=== PATIENT | female | born 1995 | race Caucasian/White ===

== ENCOUNTER 2023-05-13 16:51 | Inpatient (IN) ==
[2023-05-13] MEDS ORDERED: ONDANSETRON INJ 2 MG/ML 2 ML VIAL IV STA (18:03)
[2023-05-13] MEDS ORDERED: KETOROLAC TROMETHAMINE 15 MG/ML VIAL IV STA (18:03)
[2023-05-13] MEDS ORDERED: SODIUM CHLORIDE 0.9% 1000ML 1,000 ML IV ONE (18:03)
--- NOTE | 2023-05-13 18:08 | Emergency Department Note ---
ED Provider Note History of Present Illness Chief Complaint: Flank Pain Stated Complaint: LOWER BACK PAIN,ABDOMINAL PAIN Time Seen by Provider: 05/13/23 17:52 28-year-old female who presents to the emergency department for evaluation of l eft flank pain. The patient reports that she woke up this morning with the discomfort. She has noticed increased urge to urinate. She has had nausea and vomiting x3 today. The reports that he was massaging her back this morning and that seemed to worsen the pain, as was the movement. She was seen at [facility] with a reported normal urine dip. With ongoing symptoms, the patient elected to come to the emergency department for further evaluation. The patient denies history of kidney stones or UTIs. Last menstruation was 1 week ago, and the patient denies . The patient rates her discomfort an 8 out of 10. Home Medications Medication Instructions Recorded Confirmed Type nitrofurantoin 100 mg PO BID 05/13/23 05/13/23 History monohydrate/macrocrystals 100 mg capsule Allergies Allergy/AdvReac Type Severity Reaction Status Date / Time No Known Allergies Allergy Verified 02/07/23 15:14 Past Med/Surg History Medical History Anal skin tag Anxiety disorder History of COVID-19 11/2021- bad cold symptoms, no hospitalziation, no current issues Hx of bronchitis years ago Migraine w/o aura Surgical History S/P wisdom tooth extraction Family History Father Hypertension Myocardial infarction Brother Hypertension Grandmother (Paternal) Hypertension Breast cancer Myocardial infarction Aunt Hypertension Breast cancer Uncle Hypertension Family/Other Hypertension Mother Clotting disorder Denies family history of Ovarian cancer Prostate cancer Colorectal cancer Uterine cancer Social History Smoking Status: Never smoker Second Hand Exposure: No; Do You Dip or Chew Tobacco: No; Hx Alcohol Use: Yes Alcohol type: hard liquor Alcohol Intake Frequency: Monthly or Less Hx Substance Use: No Preferred Language: Pashto Communication Ability: Effective Visual Impairment: No Limitations Hearing Ability: Normal Business Development Coordinator Required: No Beliefs That Will Affect Care: None marital status: Current Living Situation: Significant Other current occupational status: employed Feels Safe at Home: Yes Childhood Exposure to Second-Hand Smoke: Yes Diet: regular Dental Care, Regularly: Yes Physical Activity Frequency: 3-4 Times per Week Seatbelt Use: always Sunscreen Use: Yes Assistive Devices: Contacts and Glasses Physical Exam Vital Signs Vital Signs - 24 hr 05/13/23 16:59 05/13/23 18:09 05/13/23 17:51 Temperature 36.3 C L Temperature Source Temporal Artery Scan Pulse Rate 90 80 Pulse Rate from SpO2 Sensor Respiratory Rate 20 Respiratory Effort / Characteristics Non-Labored Respiratory Depth Normal Blood Pressure 124/83 Blood Pressure Mean 96 Pulse Oximetry 99 Oxygen Delivery Method Room Air Sepsis Recent Fever Within 48 Hours No Sepsis New/Unexplained Change in Mental Status N/A Sepsis Action Taken by Nursing No Action Required 05/13/23 20:30 05/13/23 20:30 05/13/23 22:09 Temperature Temperature Source Pulse Rate 85 86 Pulse Rate from SpO2 Sensor 86 Respiratory Rate 14 Respiratory Effort / Characteristics Respiratory Depth Blood Pressure 115/82 Blood Pressure Mean 93 Pulse Oximetry 96 Oxygen Delivery Method Room Air Sepsis Recent Fever Within 48 Hours Sepsis New/Unexplained Change in Mental Status Sepsis Action Taken by Nursing CONSTITUTIONAL: Healthy and well nourished. Patient appears in mild to moderate discomfort. HEENT: No scleral icterus or conjunctival injection. NECK: Full active range of motion without discomfort. RESPIRATORY: Clear to auscultation bilaterally with no wheezing, crackles, rhonchi or stridor. CARDIOVASCULAR: Regular rate and rhythm with no murmurs, rubs or gallops. GASTROINTESTINAL: Bowel sounds present in all quadrants. Patient does not have any significant abdominal tenderness to palpation. MUSCULOSKELETAL: Examination shows tenderness to palpation through the left lumbar paraspinous muscle. INTEGUMENTARY: No rash or other significant dermatologic conditions noted. HEMATOLOGIC: No ecchymosis or petechiae. PSYCHIATRIC: Positive affect. NEUROLOGIC: No focal neurologic deficits noted. Course Course Patient history and physical exam were performed. Nurses notes were reviewed. Vital signs were reviewed and were normal. IV access was established, and labs were drawn. The patient was hydrated with a liter normal saline, and administered IV Toradol and Zofran. Review of labs shows a marked leukocytosis without evidence for acute kidney injury, electrolyte abnormality or elevated lipase. Urinalysis also does not show evidence for infection. CT with IV cont rast of the abdomen and pelvis shows a moderate hydroureteronephrosis with a 4 mm left UVJ stone. I did order IV Rocephin because of her leukocytosis, and in case she may also have an early pyelonephritis. Findings were discussed with the patient, as well as urology service (Dr. Larios), who recommended admission for IV antibiotics, remaining n.p.o. after midnight, with possible stent placement tomorrow if symptoms persist. I did place an order for Flomax as well. The patient was in agreement with this plan. Harsha Obando PA-C street contractor with the urology service, also came to speak with the patient. The case was then further discussed with the Senior Control Systems Engineer, as well as Dr. Hou, [facility] hospitalist. See hospitalist and urologist dictations for further treatment and final disposition. It is noted that the patient did have significant relief of her pain and nausea with IV Toradol and Zofran, refusing any additional analgesics or antiemetics prior to transfer of care to the hospitalist service. Administered Medications Discontinued Medications Sodium Chloride (Nss 1000ml) 1,000 mls @ 999 mls/hr IV .Q1H1M ONE Stop: 05/13/23 19:03 Last Infusion: 05/13/23 19:48 Dose: 0 mls/hr Documented By: Admin: 05/13/23 18:33 Dose: 999 mls/hr Documented By: JOHN Ceftriaxone Sodium (Rocephin) 2,000 mg in 70 mls @ 140 mls/hr IV NOW STA Stop: 05/13/23 20:04 Last Infusion: 05/13/23 20:14 Dose: 0 mls/hr Documented By: Admin: 05/13/23 19:47 Dose: 140 mls/hr Documented By: Ioversol (Optiray 320 100ml) 95 ml IV ONCE ONE Stop: 05/13/23 19:07 Last Admin: 05/13/23 19:06 Dose: 95 ml Documented By: FAUSTINO Ketorolac Tromethamine (Ketorolac Tromethamine 15 Mg/Ml Vial) 15 mg IV NOW STA Stop: 05/13/23 18:04 Last Admin: 05/13/23 18:33 Dose: 15 mg Documented By: JOHN Ondansetron HCl (Ondansetron Inj 2 Mg/Ml 2 Ml Vial) 4 mg IV NOW STA Stop: 05/13/23 18:04 Last Admin: 05/13/23 18:33 Dose: 4 mg Documented By: JOHN Tamsulosin HCl (Tamsulosin Hcl 0.4 Mg Cap) 0.4 mg PO NOW ONE Stop: 05/13/23 20:17 Last Admin: 05/13/23 20:41 Dose: 0.4 mg Documented By: Medical Decision Making Medical Records Attestation: I reviewed the patient's medical records. Home Medications was personally reviewed by me Laboratory Data Attestation: I reviewed the patient's lab results. 05/13/23 17:57 05/13/23 17:57 Lab Results 05/13/23 05/13/23 05/13/23 Range/Units 17:57 17:57 17:57 WBC 17.15 H (4.8-10.8) K/ul RBC 4.19 L (4.20-5.40) M/uL Hgb 12.3 (12.0-16.0) g/dl Hct 36.3 L (37.0-47.0) % MCV 86.6 (80.0-100.0) fL MCH 29.4 (25.0-34.0) pg MCHC 33.9 (32.0-36.0) g/dL RDW Std Deviation 39.9 (36.4-46.3) fL RDW Coeff of Hollis 12.5 (11.5-14.5) % Plt Count 277 (130-400) K/uL MPV 11.5 (9.4-12.4) fL Immature Gran % (Auto) 0.6 % Neut % (Auto) 91.6 % Lymph % (Auto) 4.7 % [place] % (Auto) 2.9 % Eos % (Auto) 0.0 % Baso % (Auto) 0.2 % Neut # (Auto) 15.71 H (1.40-6.50) K/uL Lymph # (Auto) 0.80 L (1.2-3.4) K/uL [place] # (Auto) 0.50 (0.11-0.59) K/uL Eos # (Auto) 0.00 (0-0.50) K/uL Baso # (Auto) 0.04 (0-0.2) K/uL Immature Gran # (Auto) 0.10 (0.01-0.20) K/uL Sodium 138 (136-145) mmol/L Potassium 3.7 (3.5-5.1) mmol/L Chloride 104 (98-107) mmol/L Carbon Dioxide 25 (21-32) mmol/L Anion Gap 9 (3-11) BUN 15 (6-23) mg/dl Creatinine 1.19 (0.6-1.2) mg/dl Est Cr Clr Drug Dosing 57.7 ml/min Est GFR ( Amer) 71.4 ml/min Est GFR (Non-Af Amer) 61.6 ml/min BUN/Creatinine Ratio 12.6 (10-20) Glucose 105 H (70-99(Fasting)) mg/dl Calcium 9.6 (8.6-10.3) mg/dl Total Bilirubin 0.6 (0.2-1.0) mg/dl AST 16 (13-39) U/L ALT 11 (7-52) U/L Alkaline Phosphatase 47 (34-104) U/L Total Protein 8.2 (6.0-8.3) gm/dl Albumin 4.9 (3.4-5.0) gm/dl Globulin 3.3 (2.5-4.0) gm/dl Albumin/Globulin Ratio 1.5 (0.9-2) Lipase 55 (11-82) U/L Urine Color Yellow Urine Appearance Cloudy A (Clear) Urine pH 8.0 H (4.5-7.5) Ur Specific [place] 1.027 (1.000-1.030) Urine Protein Negative (Negative) Urine Glucose (UA) Negative (Negative) Urine Ketones 3+ H (Negative) Urine Blood Negative (Negative) Urine Nitrite Negative (Negative) Urine Bilirubin Negative (Negative) Urine Urobilinogen Negative (Negative) Ur Leukocyte Esterase Negative (Negative) Urine WBC (Auto) 1-5 (0-5) /hpf Urine RBC (Auto) 0-4 (0-4) /hpf U Hyaline Cast (Auto) 1-5 (0-5) /lpf U Epithel Cells (Auto) >30 H (0-5) /lpf Urine Bacteria (Auto) Negative (Negative) POC Ur Test (NEG) SARS-CoV-2, RNA, NAAT (NEGATIVE) 05/13/23 05/13/23 Range/Units 18:01 20:26 WBC (4.8-10.8) K/ul RBC (4.20-5.40) M/uL Hgb (12.0-16.0) g/dl Hct (37.0-47.0) % MCV (80.0-100.0) fL MCH (25.0-34.0) pg MCHC (32.0-36.0) g/dL RDW Std Deviation (36.4-46.3) fL RDW Coeff of Hollis (11.5-14.5) % Plt Count (130-400) K/uL MPV (9.4-12.4) fL Immature Gran % (Auto) % Neut % (Auto) % Lymph % (Auto) % [place] % (Auto) % Eos % (Auto) % Baso % (Auto) % Neut # (Auto) (1.40-6.50) K/uL Lymph # (Auto) (1.2-3.4) K/uL [place] # (Auto) (0.11-0.59) K/uL Eos # (Auto) (0-0.50) K/uL Baso # (Auto) (0-0.2) K/uL Immature Gran # (Auto) (0.01-0.20) K/uL Sodium (136-145) mmol/L Potassium (3.5-5.1) mmol/L Chloride (98-107) mmol/L Carbon Dioxide (21-32) mmol/L Anion Gap (3-11) BUN (6-23) mg/dl Creatinine (0.6-1.2) mg/dl Est Cr Clr Drug Dosing ml/min Est GFR ( Amer) ml/min Est GFR (Non-Af Amer) ml/min BUN/Creatinine Ratio (10-20) Glucose (70-99(Fasting)) mg/dl Calcium (8.6-10.3) mg/dl Total Bilirubin (0.2-1.0) mg/dl AST (13-39) U/L ALT (7-52) U/L Alkaline Phosphatase (34-104) U/L Total Protein (6.0-8.3) gm/dl Albumin (3.4-5.0) gm/dl Globulin (2.5-4.0) gm/dl Albumin/Globulin Ratio (0.9-2) Lipase (11-82) U/L Urine Color Urine Appearance (Clear) Urine pH (4.5-7.5) Ur Specific [place] (1.000-1.030) Urine Protein (Negative) Urine Glucose (UA) (Negative) Urine Ketones (Negative) Urine Blood (Negative) Urine Nitrite (Negative) Urine Bilirubin (Negative) Urine Urobilinogen (Negative) Ur Leukocyte Esterase (Negative) Urine WBC (Auto) (0-5) /hpf Urine RBC (Auto) (0-4) /hpf U Hyaline Cast (Auto) (0-5) /lpf U Epithel Cells (Auto) (0-5) /lpf Urine Bacteria (Auto) (Negative) POC Ur Test NEG (NEG) SARS-CoV-2, RNA, NAAT NEGATIVE (NEGATIVE) Imaging Data Attestation: I personally reviewed and interpreted this imaging study as follows: My Impression: My interpretation of a CT with IV contrast shows a moderate hydroureteronephrosis with a 4 mm distal left ureteral calculus. No evidence for diverticulitis, bowel obstruction, abdominal free air, appendicitis or other concerning pelvic etiologies. Radiologist report was also reviewed with concurrence. Radiologist's Impression: Abdomen/Pelvis CT 05/13/23 18:45 CT SCAN OF THE ABDOMEN AND PELVIS WITH IV CONTRAST CLINICAL HISTORY: Left flank pain. Leukocytosis. COMPARISON STUDY: No priors. TECHNIQUE: Following the IV administration of 95 cc of Optiray 320, CT scan of the abdomen and pelvis is performed from the lung bases to the proximal femora. Images are reviewed in the axial, sagittal, and coronal planes. IV contrast was administered without complication. A dose lowering technique was utilized adhering to the principles of ALARA. CT DOSE: 586.69 mGy.cm FINDINGS: Lung bases: The heart is normal in size and without pericardial effusion. The lung bases are clear. Liver: The contrast-enhanced liver is normal in size, contour, and attenuation. There is no intrahepatic biliary ductal dilatation. The hepatic veins and portal veins are patent. Gallbladder: Unremarkable. Spleen: Normal in size and attenuation. Pancreas: Unremarkable. Adrenal glands: Unremarkable. Kidneys: The contrast enhanced kidneys are normal in size. There is a 4 mm obstructing calculus at the left vesicoureteral junction seen on image #280. This causes moderate left hydroureteronephrosis. The left kidney is edematous with heterogeneous diminished attenuation. There is left-sided perinephric str anding and fluid. No additional left renal calculi are clearly seen on this contrast-enhanced examination. No right renal calculi are identified and there is no right-sided hydronephrosis. The right kidney enhances normally. Abdominal vasculature: The abdominal aorta is normal in course and caliber. Bowel: There is no bowel obstruction. Mild to moderate fecal retention is seen throughout the colon. The appendix is well-visualized and normal. Peritoneum: There is no intraperitoneal free air or abdominal ascites. Lymphadenopathy: None. Pelvic viscera: The bladder is decompressed and grossly unremarkable. The uterus and adnexa are normal as visualized noting bilateral ovarian follicles. There is a small volume of free fluid in the cul-de-sac. Skeletal structures: No lytic or blastic lesions are seen. IMPRESSION: 1. There is a 4 mm obstructing calculus at the left vesicoureteral junction. This causes moderate left hydroureteronephrosis. 2. There is heterogeneously diminished enhancement of the left kidney with associated perinephric stranding and fluid. This may be related to obstruction/hydronephrosis. Correlate with clinical findings and urinalysis for evidence of superimposed urinary tract infection. 3. Normal appendix. 4. Nonspecific free fluid in the cul-de-sac is likely within physiologic limits. 5. Additional findings as above. ACT 112: Negative or not required by law. Electronically signed by: Harrison Dumont M.D. 05/13/2023 7:21 PM MDM Narrative See ED Course section for further details of today's visit. The patient presents with complaint of left flank pain upon awakening this morning. The patient did seem to have discomfort with massage upper back, and also had worsening pain with movement. This is suggestive of musculoskeletal etiology, however does not explain the patient's nausea, vomiting and urinary symptoms. Review of labs does show a marked leukocytosis with no evidence for acute kidney injury. Urinalysis also does not show evidence for UTI. CT imaging does show evidence for a moderate hydroureteronephrosis secondary to a 4 [address] left UVJ calculus. CT imaging does not show evidence for diverticulitis, bowel obstruction, appendicitis or other concerning intrapelvic etiologies. Laboratory studies are not suggestive of pancreatitis, cholecystitis, hepatitis or obvious UTI. Given the patient's obstructing ureteral calculus with marked leukocytosis, I did elect to treat the patient with IV antibiotics, and consulted urology, who recommended admission for continued IV antibiotics and possible stent placement tomorrow if the patient does not pass the stone overnight. Impression Calculus of distal left ureter, Hydronephrosis, Leukocytosis Discharge Plan Visit Data Chief Complaint: Flank Pain Stated Complaint: LOWER BACK PAIN,ABDOMINAL PAIN ED Provider: Zeus Rangel ED Midlevel Provider: Linden Acosta Discharge Problem: Calculus of distal left ureter, Hydronephrosis, Leukocytosis Forms Stand Alone Forms: My [facility] Prescriptions Prescriptions: No Action nitrofurantoin monohyd/m-cryst 100 mg capsule 100 mg PO BID Rx Instructions: hasnt picked up from pharmacy yet Referrals Referrals: Hi Galaviz MD [Primary Care Provider] - Hydronephrosis Qualifiers: Hydronephrosis type: with ureteral calculous obstruction Qualified Code(s): N13.2 - Hydronephrosis with renal and ureteral calculous obstruction
[2023-05-13 18:24] LABS: Hematocrit (blood only) 36.3 % (37.0-47.0); Hemoglobin 12.3 g/dl (12.0-16.0); Mean Corpuscular Hemoglobin 29.4 pg (25.0-34.0); Mean Corpuscular Hgb Conc 33.9 g/dL (32.0-36.0); Mean Corpuscular Volume 86.6 fL (80.0-100.0); Mean Platelet Volume 11.5 fL (9.4-12.4); Platelet Count 277 K/uL (130-400); RDW Coefficient of Variation 12.5 % (11.5-14.5); RDW Standard Deviation 39.9 fL (36.4-46.3); Red Blood Count 4.19 M/uL (4.20-5.40); White Blood Count 17.15 K/ul (4.8-10.8)
[2023-05-13 18:30] LABS: Appearance Urine Cloudy (Clear); Bacteria Urine Automated Negative (Negative); Bilirubin Urine Negative (Negative); Blood Urine Negative (Negative); Color Urine Yellow; Epithelial Cell Urine Auto >30 /lpf (0-5); Glucose Urine UA Negative (Negative); Ketones Urine 3+ (Negative); Leukocyte Esterase Urine Negative (Negative); Nitrite Urine Negative (Negative); Protein Urine Negative (Negative); RBC Urine Automated 0-4 /hpf (0-4); Specific Gravity Urine 1.027 (1.000-1.030); Urobilinogen Urine Negative (Negative)
[2023-05-13 18:34] LABS: Albumin Globulin Ratio 1.5 (0.9-2); Albumin Level 4.9 gm/dl (3.4-5.0); BUN Creatinine Ratio 12.6 (10-20); Bilirubin,Total 0.6 mg/dl (0.2-1.0); Calcium 9.6 mg/dl (8.6-10.3); Creatinine Clr Calc Pharmacy 57.7 ml/min; Est GFR (African American) 71.4 ml/min; Est GFR (Non-African American) 61.6 ml/min; Globulin 3.3 gm/dl (2.5-4.0); Potassium 3.7 mmol/L (3.5-5.1); Total Protein 8.2 gm/dl (6.0-8.3)
[2023-05-13] MEDS ORDERED: OPTIRAY 320 100ml IV ONE (19:06)
--- NOTE | 2023-05-13 19:24 | CT Scan Report ---
CT SCAN OF THE ABDOMEN AND PELVIS WITH IV CONTRAST CLINICAL HISTORY: Left flank pain. Leukocytosis. COMPARISON STUDY: No priors. TECHNIQUE: Following the IV administration of 95 cc of Optiray 320, CT scan of the abdomen and pelvi s is performed from the lung bases to the proximal femora. Images are reviewed in the axial, sagittal , and coronal planes. IV contrast was administered without complication. A dose lowering technique wa s utilized adhering to the principles of ALARA. CT DOSE: 586.69 mGy.cm FINDINGS: Lung bases: The heart is normal in size and without pericardial effusion. The lung bases are clear. Liver: The contrast-enhanced liver is normal in size, contour, and attenuation. There is no intrahepa tic biliary ductal dilatation. The hepatic veins and portal veins are patent. Gallbladder: Unremarkable. Spleen: Normal in size and attenuation. Pancreas: Unremarkable. Adrenal glands: Unremarkable. Kidneys: The contrast enhanced kidneys are normal in size. There is a 4 mm obstructing calculus at th e left vesicoureteral junction seen on image #280. This causes moderate left hydroureteronephrosis. T he left kidney is edematous with heterogeneous diminished attenuation. There is left-sided perinephri c stranding and fluid. No additional left renal calculi are clearly seen on this contrast-enhanced ex amination. No right renal calculi are identified and there is no right-sided hydronephrosis. The righ t kidney enhances normally. Abdominal vasculature: The abdominal aorta is normal in course and caliber. Bowel: There is no bowel obstruction. Mild to moderate fecal retention is seen throughout the colon. The appendix is well-visualized and normal. Peritoneum: There is no intraperitoneal free air or abdominal ascites. Lymphadenopathy: None. Pelvic viscera: The bladder is decompressed and grossly unremarkable. The uterus and adnexa are nicki l as visualized noting bilateral ovarian follicles. There is a small volume of free fluid in the cul- de-sac. Skeletal structures: No lytic or blastic lesions are seen. IMPRESSION: 1. There is a 4 mm obstructing calculus at the left vesicoureteral junction. This causes moderate lef t hydroureteronephrosis. 2. There is heterogeneously diminished enhancement of the left kidney with associated perinephric str anding and fluid. This may be related to obstruction/hydronephrosis. Correlate with clinical findings and urinalysis for evidence of superimposed urinary tract infection. 3. Normal appendix. 4. Nonspecific free fluid in the cul-de-sac is likely within physiologic limits. 5. Additional findings as above. ACT 112: Negative or not required by law. Electronically signed by: Harrison Dumont M.D. 05/13/2023 7:21 PM
[2023-05-13] MEDS ORDERED: cefTRIAXone SODIUM 2,000 MG/70 ML BAG IV STA (19:35)
[2023-05-13 19:44] LABS: Basophils # (auto) 0.04 K/uL (0-0.2); Basophils % (auto) 0.2 %; Immature Granulocytes % (auto) 0.6 %; Lymphocytes % (auto) 4.7 %; Monocytes % (auto) 2.9 %; Neutrophils # (auto) 15.71 K/uL (1.40-6.50); Neutrophils % (auto) 91.6 %
[2023-05-13] MEDS ORDERED: TAMSULOSIN HCL 0.4 MG CAP PO ONE (20:16)
--- NOTE | 2023-05-13 20:43 | Urology Consultation ---
Date of Consultation May 13, 2023 Assessment & Plan (1) Calculus of distal left ureter: I discussed with the treating emergency room clinician. We have presented the patient with several options. We did offer to treat the patient with antibiotics as an outpatient with return precautions in place. We also offered to have the patient placed in the hospital for intravenous antibiotics. We also offered to place the patient in the hospital for antibiotics with the potential for cystoscopic intervention. After detailed discussion with the patient and her fianc she felt hesitant to be discharged home and wishes to stay in the hospital. The treating emergency room clinician is having the patient admitted on the hospitalist service we recommend proceeding as follows: Provide analgesics Provide antiemetics Provide IV fluid for hydration Antibiotics in form of Rocephin have been initiated and this should continue. Although the patient's urinalysis does not take infection I have ordered a urine culture to ensure an underlying urinary tract infection is present particularly in the setting of her leukocytosis. Antibiotics to be tailored based on the results of this culture. Flomax has been initiated for expulsive therapy and this medication should be continued. This has been ordered. I discussed with the patient that with a 4 mm distal kidney stone there is a good chance she may pass the stone on her own however if she does not pass the stone cystoscopic intervention may be required. Patient has been added to the operating room schedule for 05/14/[address] Larios for cystoscopy and intervention on her stone as indicated. She has been made made n.p.o. after midnight in anticipation of this procedure. Additional recommendations be forthcoming based on her clinical course as it unfolds SCDs alone to be used for DVT prevention, no chemical means due to planned pro cedure History of Present Illness Reason for Consultation: Nephrolithiasis History of Present Illness This is a 28-year-old female with no significant past medical history specifically no prior history of kidney stones who presented to the emergency department secondary to left-sided flank pain. The patient noted that she was in her usual state of health until 11:00 AM this morning when she developed some left-sided flank pain. She says she took a hot shower which improved the pain somewhat but then the pain returned. She describes the pain as being in her left flank with radiation to the left groin. She did have several episodes of nausea and vomiting with occasional chills. She specifically denied any rigors or fevers. Patient does note urinary frequency and feels as though she is not emptying her bladder completely each time. She denies any dysuria and denies any hematuria. Patient says that because of her pain she went to an urgent care center where she was told she had a urinalysis that was not indicative of infection. The patient was prescribed Macrobid and told to report to the emergency department if her symptoms return. Patient had return of her symptoms prior to filling this antibiotic and therefore did not take any antibiotic until presentation to the emergency department. Since arrival to the emergency department patient has had labs and imaging which independent reviewed. The patient had a CT scan of the abdomen pelvis that shanthi wed that she had a 4 mm obstructing kidney stone at the left ureteral vesicle junction resulting in moderate left hydronephrosis. There is some associated perinephric stranding noted on the CT scan. Labs include a CBC her white blood cell count was elevated at 17.1. Hemoglobin and hematocrit were 12.3 and 36.3. Platelet count was normal. Chemistry profile showed sodium, potassium, BUN, and creatinine were normal. There is no elevation of LFTs or lipase. Urinalysis was not indicative of infection. A test was negative. At the time of my interview the patient was resting comfortably in bed and she was in no distress. Allergies Allergy/AdvReac Type Severity Reaction Status Date / Time No Known Allergies Allergy Verified 02/07/23 15:14 Home Medications Medication Instructions Recorded Confirmed Type nitrofurantoin 100 mg PO BID 05/13/23 05/13/23 History monohydrate/macrocrystals 100 mg capsule Patient History Medical History Anal skin tag Anxiety disorder History of COVID-19 11/2021- bad cold symptoms, no hospitalziation, no current issues Hx of bronchitis years ago Migraine w/o aura Surgical History S/P wisdom tooth extraction Family History Father Hypertension Myocardial infarction Brother Hypertension Grandmother (Paternal) Hypertension Breast cancer Myocardial infarction Aunt Hypertension Breast cancer Uncle Hypertension Family/Other Hypertension Mother Clotting disorder Denies family history of Ovarian cancer Prostate cancer Colorectal cancer Uterine cancer Social History Smoking Status: Never smoker Second Hand Exposure: No; Do You Dip or Chew Tobacco: No; Hx Alcohol Use: Yes Alcohol type: hard liquor Alcohol Intake Frequency: Monthly or Less Hx Substance Use: No Preferred Language: Nepali Communication Ability: Effective Visual Impairment: No Limitations Hearing Ability: Normal Piano Regulator Required: No Beliefs That Will Affect Care: None marital status: Current Living Situation: Significant Other current occupational status: employed Feels Safe at Home: Yes Childhood Exposure to Second-Hand Smoke: Yes Diet: regular Dental Care, Regularly: Yes Physical Activity Frequency: 3-4 Times per Week Seatbelt Use: always Sunscreen Use: Yes Assistive Devices: Contacts and Glasses Review of Systems Constitutional: + chills; no fever Ear, Nose, Mouth, Throat: no ear pain Respiratory: no cough and no dyspnea Cardiovascular: no chest pain Gastrointestinal: + abdominal pain (Radiating from left flank), + nausea and + vomiting Genitourinary: as per Subjective / HPI Musculoskeletal: + back pain (Left flank) Integumentary: no rash Neurologic: no localized weakness Physical Exam Constitutional: well developed and well nourished; no acute distress Eyes: no conjunctival abnormality ENMT: Ears: no hearing impairment and no external ear abnormality Mouth: no oropharynx abnormality Neck: trachea midline Respiratory: normal respiratory effort; no respiratory distress and no labored breathing Cardiovascular: Rate/Rhythm: regular rate and regular rhythm Vessels: dorsalis pedis pulses present and radial pulses present Gastrointestinal (Abdomen): Abdomen is soft and nonrigid. There is no rebound tenderness or guarding. There is no pain with palpation. Her abdomen is nondistended. Musculoskeletal: No calf tenderness. Feet are warm and well-perfused with palpable pedal pulses. Skin: no rashes Neurologic: moves all extremities Psychiatric: A+Ox3, euthymic affect Genitourinary: Left-sided CVA tenderness noted with percussion Results & Data Vital Signs (Past 12 Hours) Vital Signs Temp Pulse Resp BP Pulse Ox O2 Del Method 05/13/23 20:30 85 14 96 Room Air 05/13/23 20:30 115/82 05/13/23 18:09 80 05/13/23 16:59 36.3 C L 90 20 124/83 99 Room Air PG Care Time/CCT Total # of Minutes Spent Total Time Spent with Patient: Total time spent is greater than 50% in coordination of care (as documented) at patient's floor/unit and/or counseling patient: Coding Level of Care Code 36161 IN/OBS CONSULT LVL 5,80M Diagnoses Calculus of distal left ureter N20.1
--- NOTE | 2023-05-13 21:18 | History & Physical Report ---
Date of Service May 13, 2023 Assessment & Plan (1) Calculus of ureterovesical junction (UVJ): (2) Calculus of distal left ureter: (3) Hydronephrosis: (4) Leukocytosis: Plan 4 mm left UVJ stone/moderate left hydroureteronephrosis- N.p.o. after midnight Follow urine culture and sensitivity Ceftriaxone 2 g IV daily Tylenol 650 mg by mouth every 6 hours as needed for mild pain or temperature Toradol 15 mg IV every 6 hours as needed for moderate pain Dilaudid 0.2 mg IV every 3 hours as needed for severe pain Zofran 4 mg every 6 hours as needed NSS + KCl 20 mEq at 100 mils per hour Tamsulosin 0.4 mg daily Consult to urology Follow serial renal profile and magnesium levels History of Present Illness Chief Complaint: The patient presents to the emergency department with complaint of waking up this morning with left flank pain, increased urge to urinate, and with nausea and vomiting x3 today. Primary Care Provider: Hi Galaviz MD The patient is a 28-year-old female with a past medical history including depression, anxiety, migraine, dysmenorrhea. She awoke this morning with left- sided flank pain, increased urinary frequency, and had nausea vomiting x3 throughout the day today. Due to persistence of symptoms, the patient presented emergency department for work-up. Significant laboratories: WBC 17.15, creatinine 1.[address] scan of abdomen and pelvis showed a 4 mm left UVJ stone with moderate left hydroureteronephrosis From the emergency department the patient received the following: Normal saline 1 L, Toradol 15 mg IV, Zofran 4 mg IV, ceftriaxone 2 g IV and tamsulosin 0.4 mg p.o. Allergies Allergy/AdvReac Type Severity Reaction Status Date / Time No Known Allergies Allergy Verified 02/07/23 15:14 Home Medications Medication Instructions Recorded Confirmed Type nitrofurantoin 100 mg PO BID 05/13/23 05/13/23 History monohydrate/macrocrystals 100 mg capsule Past Med/Surg History Medical History Anal skin tag Anxiety disorder History of COVID-19 11/2021- bad cold symptoms, no hospitalziation, no current issues Hx of bronchitis years ago Migraine w/o aura Surgical History S/P wisdom tooth extraction Family History Father Hypertension Myocardial infarction Brother Hypertension Grandmother (Paternal) Hypertension Breast cancer Myocardial infarction Aunt Hypertension Breast cancer Uncle Hypertension Family/Other Hypertension Mother Clotting disorder Denies family history of Ovarian cancer Prostate cancer Colorectal cancer Uterine cancer Social History Smoking Status: Never smoker Second Hand Exposure: No; Do You Dip or Chew Tobacco: No; Tobacco Cessation Education Requested by Patient: No Hx Alcohol Use: Yes Alcohol type: hard liquor Alcohol Intake Frequency: Monthly or Less Hx Substance Use: No Preferred Language: French Communication Ability: Effective Visual Impairment: No Limitations Hearing Ability: Normal Ordnance Artificer Helper Required: No Beliefs That Will Affect Care: None marital status: Current Living Situation: Alone current occupational status: employed Other Information That Helps Us Care for You: No Feels Safe at Home: Yes Safety Concerns: Feels Safe At This Time Childhood Exposure to Second-Hand Smoke: Yes Diet: regular Dental Care, Regularly: Yes Physical Activity Frequency: 3-4 Times per Week Seatbelt Use: always Sunscreen Use: Yes Assistive Devices: None Review of Systems Review of Systems: The patient denies chest pain, palpitations, shortness of breath, dyspnea on exertion, cough, lower extremity swelling, sore throat, fevers, chills, sweats, weight change, fatigue, nausea, vomiting, diarrhea , constipation, blood in urine or stool, lightheadedness, dizziness, headache, memory loss, loss of consciousness, rash, abnormal bruising or bleeding, imbalance, focal or generalized weakness, numbness or tingling in arms or legs, generalized arthralgias or myalgias, neck pain, or night sweats. The review of systems is otherwise negative other than for that already noted above, and at least 10 systems have been reviewed. Physical Exam Physical Exam: The patient is awake, alert and oriented 3, well developed and well nourished, normocephalic and atraumatic, lying in bed and in no acute distress. HEENT--PERRL, EOMI, mucous membranes and oropharynx dry. Neck--supple. No JVD. No bruits. Thyroid normal, trachea midline, no adenopathy. Heart--normal S1 and S2. No murmurs, rubs or gallops. Lungs--clear bilaterally, no respiratory distress, no accessory muscle use. Abdomen--normal bowel sounds and soft. Nontender. Nondistended, no hernias or masses, no organomegaly. Extremities--no cyanosis or clubbing. No edema. There are good distal pulses b/l. Dermatologic--normal skin turgor, normal color, no abnormal lymph nodes, no rash. Neurologic--cranial nerves II through XII grossly intact. Rheumatologic--normal range of motion. Psychiatric--normal affect. Results & Data Results & Data Vital Signs (Past 12 Hours) Vital Signs Temp Pulse Resp BP Pulse Ox O2 Del Method 05/13/23 20:30 85 14 96 Room Air 05/13/23 20:30 115/82 05/13/23 18:09 80 05/13/23 16:59 36.3 C L 90 20 124/83 99 Room Air Laboratory Results Laboratory Results WBC 17.15 K/ul (4.8-10.8) H 05/13/23 17:57 RBC 4.19 M/uL (4.20-5.40) L 05/13/23 17:57 Hgb 12.3 g/dl (12.0-16.0) 05/13/23 17:57 Hct 36.3 % (37.0-47.0) L 05/13/23 17:57 MCV 86.6 fL (80.0-100.0) 05/13/23 17:57 MCH 29.4 pg (25.0-34.0) 05/13/23 17:57 MCHC 33.9 g/dL (32.0-36.0) 05/13/23 17:57 RDW Std Deviation 39.9 fL (36.4-46.3) 05/13/23 17:57 RDW Coeff of Hollis 12.5 % (11.5-14.5) 05/13/23 17:57 Plt Count 277 K/uL (130-400) 05/13/23 17:57 MPV 11.5 fL (9.4-12.4) 05/13/23 17:57 Immature Gran % (Auto) 0.6 % 05/13/23 17:57 Neut % (Auto) 91.6 % 05/13/23 17:57 Lymph % (Auto) 4.7 % 05/13/23 17:57 Dukes % (Auto) 2.9 % 05/13/23 17:57 Eos % (Auto) 0.0 % 05/13/23 17:57 Baso % (Auto) 0.2 % 05/13/23 17:57 Neut # (Auto) 15.71 K/uL (1.40-6.50) H 05/13/23 17:57 Lymph # (Auto) 0.80 K/uL (1.2-3.4) L 05/13/23 17:57 Dukes # (Auto) 0.50 K/uL (0.11-0.59) 05/13/23 17:57 Eos # (Auto) 0.00 K/uL (0-0.50) 05/13/23 17:57 Baso # (Auto) 0.04 K/uL (0-0.2) 05/13/23 17:57 Immature Gran # (Auto) 0.10 K/uL (0.01-0.20) 05/13/23 17:57 Sodium 138 mmol/L (136-145) 05/13/23 17:57 Potassium 3.7 mmol/L (3.5-5.1) 05/13/23 17:57 Chloride 104 mmol/L (98-107) 05/13/23 17:57 Carbon Dioxide 25 mmol/L (21-32) 05/13/23 17:57 Anion Gap 9 (3-11) 05/13/23 17:57 BUN 15 mg/dl (6-23) 05/13/23 17:57 Creatinine 1.19 mg/dl (0.6-1.2) 05/13/23 17:57 Est Cr Clr Drug Dosing 57.7 ml/min 05/13/23 17:57 Est GFR ( Amer) 71.4 ml/min 05/13/23 17:57 Est GFR (Non-Af Amer) 61.6 ml/min 05/13/23 17:57 BUN/Creatinine Ratio 12.6 (10-20) 05/13/23 17:57 Glucose 105 mg/dl (70-99(Fasting)) H 05/13/23 17:57 Calcium 9.6 mg/dl (8.6-10.3) 05/13/23 17:57 Total Bilirubin 0.6 mg/dl (0.2-1.0) 05/13/23 17:57 AST 16 U/L (13-39) 05/13/23 17:57 ALT 11 U/L (7-52) 05/13/23 17:57 Alkaline Phosphatase 47 U/L (34-104) 05/13/23 17:57 Total Protein 8.2 gm/dl (6.0-8.3) 05/13/23 17:57 Albumin 4.9 gm/dl (3.4-5.0) 05/13/23 17:57 Globulin 3.3 gm/dl (2.5-4.0) 05/13/23 17:57 Albumin/Globulin Ratio 1.5 (0.9-2) 05/13/23 17:57 Lipase 55 U/L (11-82) 05/13/23 17:57 Urine Color Yellow 05/13/23 17:57 Urine Appearance Cloudy (Clear) A 05/13/23 17:57 Urine pH 8.0 (4.5-7.5) H 05/13/23 17:57 Ur Specific [place] 1.027 (1.000-1.030) 05/13/23 17:57 Urine Protein Negative (Negative) 05/13/23 17:57 Urine Glucose (UA) Negative (Negative) 05/13/23 17:57 Urine Ketones 3+ (Negative) H 05/13/23 17:57 Urine Blood Negative (Negative) 05/13/23 17:57 Urine Nitrite Negative (Negative) 05/13/23 17:57 Urine Bilirubin Negative (Negative) 05/13/23 17:57 Urine Urobilinogen Negative (Negative) 05/13/23 17:57 Ur Leukocyte Esterase Negative (Negative) 05/13/23 17:57 Urine WBC (Auto) 1-5 /hpf (0-5) 05/13/23 17:57 Urine RBC (Auto) 0-4 /hpf (0-4) 05/13/23 17:57 U Hyaline Cast (Auto) 1-5 /lpf (0-5) 05/13/23 17:57 U Epithel Cells (Auto) >30 /lpf (0-5) H 05/13/23 17:57 Urine Bacteria (Auto) Negative (Negative) 05/13/23 17:57 POC Ur Test NEG (NEG) 05/13/23 18:01 SARS-CoV-2, RNA, NAAT NEGATIVE (NEGATIVE) 05/13/23 20:26 Impressions Abdomen/Pelvis CT 05/13/23 18:45 CT SCAN OF THE ABDOMEN AND PELVIS WITH IV CONTRAST CLINICAL HISTORY: Left flank pain. Leukocytosis. COMPARISON STUDY: No priors. TECHNIQUE: Following the IV administration of 95 cc of Optiray 320, CT scan of the abdomen and pelvis is performed from the lung bases to the proximal femora. Images are reviewed in the axial, sagittal, and coronal planes. IV contrast was administered without complication. A dose lowering technique was utilized adhering to the principles of ALARA. CT DOSE: 586.69 mGy.cm FINDINGS: Lung bases: The heart is normal in size and without pericardial effusion. The lung bases are clear. Liver: The contrast-enhanced liver is normal in size, contour, and attenuation. There is no intrahepatic biliary ductal dilatation. The hepatic veins and portal veins are patent. Gallbladder: Unremarkable. Spleen: Normal in size and attenuation. Pancreas: Unremarkable. Adrenal glands: Unremarkable. Kidneys: The contrast enhanced kidneys are normal in size. There is a 4 mm obstructing calculus at the left vesicoureteral junction seen on image #280. This causes moderate left hydroureteronephrosis. The left kidney is edematous with heterogeneous diminished attenuation. There is left-sided perinephric stranding and fluid. No additional left renal calculi are clearly seen on this contrast-enhanced examination. No right renal calculi are identified and there is no right-sided hydronephrosis. The right kidney enhances normally. Abdominal vasculature: The abdominal aorta is normal in course and caliber. Bowel: There is no bowel obstruction. Mild to moderate fecal retention is seen throughout the colon. The appendix is well-visualized and normal. Peritoneum: There is no intraperitoneal free air or abdominal ascites. Lymphadenopathy: None. Pelvic viscera: The bladder is decompressed and grossly unremarkable. The uterus and adnexa are normal as visualized noting bilateral ovarian follicles. There is a small volume of free fluid in the cul-de-sac. Skeletal structures: No lytic or blastic lesions are seen. IMPRESSION: 1. There is a 4 mm obstructing calculus at the left vesicoureteral junction. This causes moderate left hydroureteronephrosis. 2. There is heterogeneously diminished enhancement of the left kidney with associated perinephric stranding and fluid. This may be related to obstruction/hydronephrosis. Correlate with clinical findings and urinalysis for evidence of superimposed urinary tract infection. 3. Normal appendix. 4. Nonspecific free fluid in the cul-de-sac is likely within physiologic limits. 5. Additional findings as above. ACT 112: Negative or not required by law. Electronically signed by: Harrison Dumont M.D. 05/13/2023 7:21 PM Code Status & VTE Plan Code Status Full code VTE Prophylaxis Plan VTE Prophylaxis will be ordered: Yes PG Care Time/CCT Total # of Minutes Spent Total Time Spent with Patient: Total time spent is greater than 50% in coordination of care (as documented) at patient's floor/unit and/or counseling patient: Coding Level of Care Code 40710 INT INP/OBS CARE 3/75MIN Diagnoses Calculus of ureterovesical junction (UVJ) N20.1 Calculus of distal left ureter N20.1 Hydronephrosis N13.2 Hydronephrosis type: with ureteral calculous obstruction Leukocytosis D72.829 (3) Hydronephrosis Hydronephrosis type: with ureteral calculous obstruction Qualified Code(s): N13.2 - Hydronephrosis with renal and ureteral calculous obstruction
[2023-05-13] MEDS ORDERED: KETOROLAC TROMETHAMINE 15 MG/ML VIAL IV PRN (23:27)
[2023-05-13] MEDS ORDERED: ONDANSETRON INJ 2 MG/ML 2 ML VIAL IV PRN (23:27)
[2023-05-13] MEDS ORDERED: HYDROmorphone INJ 0.5 MG/0.5 ML SYR IV PRN (23:27)
[2023-05-14] MEDS: NSS + 20MEQ KCL 20 MEQ/1,000 ML BAG IV SCH ×2 (00:01→09:35)
[2023-05-14 06:42] LABS: Basophils # (auto) 0.03 K/uL (0-0.2); Basophils % (auto) 0.3 %; Eosinophils # (auto) 0.02 K/uL (0-0.50); Eosinophils % (auto) 0.2 %; Hematocrit (blood only) 34.2 % (37.0-47.0); Hemoglobin 11.6 g/dl (12.0-16.0); Immature Granulocytes # (auto) 0.05 K/uL (0.01-0.20); Immature Granulocytes % (auto) 0.4 %; Lymphocytes # (auto) 2.06 K/uL (1.2-3.4); Lymphocytes % (auto) 17.8 %; Mean Corpuscular Hemoglobin 29.3 pg (25.0-34.0); Mean Corpuscular Hgb Conc 33.9 g/dL (32.0-36.0); Mean Corpuscular Volume 86.4 fL (80.0-100.0); Mean Platelet Volume 11.6 fL (9.4-12.4); Monocytes # (auto) 1.03 K/uL (0.11-0.59); Monocytes % (auto) 8.9 %; Neutrophils # (auto) 8.41 K/uL (1.40-6.50); Neutrophils % (auto) 72.4 %; Platelet Count 237 K/uL (130-400); RDW Coefficient of Variation 12.5 % (11.5-14.5); RDW Standard Deviation 39.9 fL (36.4-46.3); Red Blood Count 3.96 M/uL (4.20-5.40)
[2023-05-14 06:48] LABS: BUN Creatinine Ratio 10.6 (10-20); Calcium 8.9 mg/dl (8.6-10.3); Creatinine Clr Calc Pharmacy 48.4 ml/min; Est GFR (African American) 57.7 ml/min; Est GFR (Non-African American) 49.8 ml/min; Magnesium 1.9 mg/dl (1.7-2.4); Phosphorus 3.7 mg/dl (2.5-4.9); Potassium 3.9 mmol/L (3.5-5.1)
[2023-05-14] MEDS ORDERED: TAMSULOSIN HCL 0.4 MG CAP PO SCH (09:00)
--- NOTE | 2023-05-14 09:33 | Urology Progress Note ---
Date of Service May 14, 2023 Assessment & Plan (1) Calculus of ureterovesical junction (UVJ): Plan 28-year-old female with a 4 mm left UVJ calculus I offered her surgery today with possible stone treatment but her pain has resolved and she is interested in going home. I do think this is reasonable as she either has passed the stone or has a high likelihood of passing it and avoiding a procedure based on its size and location. We discussed reasons she would need to come back to the hospital which is intractable pain or fevers. Leukocytosis has downtrended. Creatinine is slightly elevated but I am not concerned about this. I do not think she has an infection as her urinalysis was negative. Suspect the initial leukocytosis was from vomiting and dehydration. Have sent Flomax and oxycodone to her pharmacy I will see her back in 2 weeks with a KUB and an ultrasound to ensure stone passage Admission and Anticipated Discharge Date Admission Date: May 13, 2023 Subjective 48-year-old female with a 4 mm left UVJ calculus who was admitted for pain control. Leukocytosis was 17 yesterday but is down to 11.6 today. She is afebrile with stable vitals. Creatinine is slightly up at 1.42 from 1.19. Urinalysis was negative for infection. She reports her pain has resolved and she would like to go home. She denies passing the stone overnight. Review of Systems Review of Systems: 14 point review of systems negative outside of what is listed above in HPI Physical Exam Physical Exam: General: Alert and oriented, no acute distress HEENT: Normocephalic, mucous membranes moist Pulmonary: Nonlabored respirations Abdomen: Nondistended Extremities: Moves all 4 spontaneously Neuro: No gross deficits Skin: Warm, dry, no rashes noted Results & Data Vital Signs (Past 12 Hours) Vital Signs Temp Pulse Pulse Resp BP Pulse Ox O2 Del Method 05/14/23 07:37 36.7 C 79 16 124/85 98 Room Air 05/13/23 23:04 99 H 16 119/67 96 Room Air 05/13/23 22:48 Room Air 05/13/23 22:09 86 PG Care Time/CCT Total # of Minutes Spent Total Time Spent with Patient: Total time spent is greater than 50% in coordination of care (as documented) at patient's floor/unit and/or counseling patient: Coding Level of Care Code 71021 SUB INP/OBS CARE MIN Diagnoses Calculus of ureterovesical junction (UVJ) N20.1
--- NOTE | 2023-05-14 16:07 | Discharge Summary ---
Date of Service May 14, 2023 Admission HPI Per Admitting Provider The patient is a 28-year-old female with a past medical history including depression, anxiety, migraine, dysmenorrhea. She awoke this morning with left- sided flank pain, increased urinary frequency, and had nausea vomiting x3 throughout the day today. Due to persistence of symptoms, the patient presented emergency department for work-up. Significant laboratories: WBC 17.15, creatinine 1.[address] scan of abdomen and pelvis showed a 4 mm left UVJ stone with moderate left hydroureteronephrosis From the emergency department the patient received the following: Normal saline 1 L, Toradol 15 mg IV, Zofran 4 mg IV, ceftriaxone 2 g IV and tamsulosin 0.4 mg p.o. Admission Exam Per Admitting Provider The patient is awake, alert and oriented 3, well developed and well nourished, normocephalic and atraumatic, lying in bed and in no acute distress. HEENT--PERRL, EOMI, mucous membranes and oropharynx dry. Neck--supple. No JVD. No bruits. Thyroid normal, trachea midline, no adenopathy. Heart--normal S1 and S2. No murmurs, rubs or gallops. Lungs--clear bilaterally, no respiratory distress, no accessory muscle use. Abdomen--normal bowel sounds and soft. Nontender. Nondistended, no hernias or masses, no organomegaly. Extremities--no cyanosis or clubbing. No edema. There are good distal pulses b/l. Dermatologic--normal skin turgor, normal color, no abnormal lymph nodes, no rash. Neurologic--cranial nerves II through XII grossly intact. Rheumatologic--normal range of motion. Psychiatric--normal affect. Principal Diagnosis Left UVJ stone, hydronephrosis Discharge Exam General: No acute distress HEENT: PERRLA. Normal conjunctiva, anicteric sclera. Oropharynx normal. Respiratory: Normal respiratory effort, CTABL. Cardiovascular: RRR without murmurs, gallops, or rubs. No pedal edema. GI: Soft abdomen with normal bowel sounds heard on auscultation. Nontender x4 quadrants Neuro: Alert and oriented x3. Discharge Data Allergies Allergy/AdvReac Type Severity Reaction Status Date / Time No Known Allergies Allergy Verified 02/07/23 15:14 Consultations 05/13/23 20:16 Consult Urology Stat ED Decision to Admit Stat Ordered Studies 05/13/23 18:45 CT abd pelvis IV con only Stat Hospital Course (1) Calculus of ureterovesical junction (UVJ): 28-year-old female with a 4 mm left UVJ calculus Left UVJ stone Admitted with initiation of empiric ceftriaxone. IV Dilaudid as needed, To radol as needed for pain. Zofran for nausea. Urology consulted. Surgery offered with possible stone treatment but her pain has resolved and she is interested in going home. Urology in agreement with patient As she either has passed the stone or has a high likelihood of passing it and avoiding a procedure based on its size and location. We discussed reasons she would need to come back to the hospital which is intractable pain or fevers. Leukocytosis has downtrended. Creatinine is slightly elevated but I am not concerned about this. Low suspicion for an infection as her urinalysis was negative. Suspect the initial leukocytosis was from vomiting and dehydration. Flomax and oxycodone sent to her pharmacy at discharge. -Sent home on as needed Zofran for nausea. Counseled to return if nausea worsens before outpatient follow-up. Outpatient follow-up in 2 weeks with a KUB and an ultrasound to ensure stone passage (2) Hydronephrosis: Total Time Total Time Spent Total Time Spent (In Minutes): Please see attending attestation. Discharge Plan Discharge Items Patient Disposition: Home - Self-Care Reason For Visit: L UVJ STONE, MOD L HYDROURETERONEPHROSIS Discharge Diagnosis: Left UVJ stone Activity: Per Instructions section Non-emergency contact: Primary Care Provider and Urologist Call non-emergency contact if: you have any medication questions, your symptoms worsen and your temperature is above 101 Follow-up/Referrals: Hi Galaviz MD [Primary Care Provider] - Diet: Regular Addtl Attending Provider Instructions: Dear Polly, You came to the hospital because of left-sided abdominal pain, nausea, and vomiting. You were admitted to the hospital because of the kidney stone found in your left kidney's ureter. You were given medications to control your pain, as well as antibiotics to treat any infection. We also consulted with a urologist, who evaluated you as well. Fortunately, you did not appear to have an infection, and your symptoms have significantly improved since her admission. Following a discussion with your urologist, we feel that you are ready to be discharged home today. 1. We are sending you home with a prescription for a medication called Flomax. Take Flomax 0.4 mg every morning until you pass the stone. 2. Your urologist will call in a prescription for a medication called oxycodone for your pain. Take oxycodone every 6-8 hours as needed until your pain improves. If you require pain management but do not want to continue taking the oxycodone, you may take Tylenol 1000 mg every 8 hours as needed for pain. 3. We are sending you home with a prescription for medication called Zofran, for nausea. Take Zofran 4 mg every 6 hours as needed for nausea. Of note: Should your nausea worsen, or suddenly become unresponsive to the Zofran, you should contact your urologist, or if unable, come back to the hospital to be evaluated. 4. You should follow-up with the urologist, Dr. Will Larios, at his office in 2 weeks. You will be contacted by the hospital manufacturing scheduler to set up a time and date. However, if you have not heard from the manufacturing scheduler in the next 2 business days, you may contact his office directly at [phone] to schedule a time. It has been a pleasure to care for you here at [facility]. If you have any questions or concerns about your stay here, please reach out to us at [phone]. Pending Studies at Discharge: No Stand-Alone Forms: My [facility], Pain - Opioid Pain Management, Smoking Cessation Medications and DC Order Prescriptions: New tamsulosin [Flomax] 0.4 mg capsule 0.4 mg PO DAILY Qty: 20 0RF oxycodone 5 mg tablet 5 mg PO Q6H PRN (Reason: pain) Qty: 10 0RF Discontinued nitrofurantoin monohyd/m-cryst 100 mg capsule 100 mg PO BID Rx Instructions: hasnt picked up from pharmacy yet No Action ondansetron 4 mg tablet,disintegrating 4 mg PO Q8H Qty: 6 0RF Discharge Orders: Discharge Order (Routine); Ordered 05/14/23 Ordered By: Napoleon Connell/Other Patient Handouts: Understanding Kidney Stones Admission Data Admit Date/Time: 05/13/23 21:17 Attending Provider: Russell Abel Admit Provider: Arian Hou Primary Care Provider: Hi Galaviz Other Providers: Will Larios ; Arian Hou Other Interventions: Discharge Summary Assessment (RN) Last Done: 05/14/23 12:46 Supervising Physician Co-Signing Physician Notes I personally examined the patient and verified all marquez points of history and exam, discussed case, and agree with decision making with Dr Medina feeling OK would like to go home Discussed "red flags" for stone management at home. Vitals noted, in general she is awake and alert pleasant no distress. HEENT normocephalic atraumatic mucous membranes moist. Breathing unlabored no accessory muscle use good effort. Skin shows no rashes no pallor or icterus. Ureterolithiasisnow feeling better. Feels up to going homethis is reasonable. Leukocytosis not consistent with infection given no fever and nothing of significance on urine culturesuspect demargination from vomiting. No need for further antibiotics at this time. Safe for homediscussed the meaning to "red flags" would be intractable nausea that does not respond to Zofrancome back for IV fluids, or fevercome back right away for infection management. Safe/stable for home Resident Activity Tracking Resident Involvement: Resident Care Provided Care Provided: Adult Hospital Medicine
--- NOTE | 2023-05-14 19:04 | Billing Data ---
Date of Service May 14, 2023 Coding Level of Care Code 91472 IN/OBS DISCH 30 MIN/LESS
[2023-05-14] MEDS ORDERED: cefTRIAXone SODIUM 2,000 MG in DEXTROSE 5% 50 ML IV SCH (20:00)
== END 2023-05-14 13:08 | disposition home or self-care (01) | DRG 694 ==
LOC: ED 16:51 → 3N 21:17 → SUATTDRO 21:17 → 3N 22:48